=== PATIENT | female | born 1945 | race African-American/Black ===

== ENCOUNTER 2017-06-08 17:07 | Outpatient (CLI) | payer OTHER | END 2017-06-08 17:09 | disposition short-term general hospital (02) | LOC: AMB 17:07 | DX: R07.89 Other chest pain (principal); M54.89 Other dorsalgia; M79.602 Pain in left arm | CPT/HCPCS: A0425; A0427 ==

== ENCOUNTER 2017-06-08 17:14 | Emergency (ER) | payer OTHER ==
[~2017-06-08] VITALS: Ht 160 cm; Wt 65.8 kg
== END 2017-06-08 19:22 | disposition home or self-care (01) ==
LOC: ED 17:14
DX: J44.0 Chronic obstructive pulmonary disease with (acute) lower respiratory infection (principal); J20.9 Acute bronchitis, unspecified
CPT/HCPCS: 93005; 99283

== ENCOUNTER 2018-02-02 18:12 | Emergency (ER) | payer OTHER ==
[~2018-02-02] VITALS: Ht 160 cm; Wt 65.8 kg
[2018-02-02 18:10] VITALS: BP 137/66; TEMP 97.3
[2018-02-02 18:59] LABS: PLATELET COUNT 287 K/uL (152-353)
== END 2018-02-02 18:53 | disposition home or self-care (01) ==
LOC: ED 18:12
PROVIDERS: Specialist
DX: R06.02 Shortness of breath (principal)
CPT/HCPCS: 80053; 80320; 82150; 82550; 82553; 83605; 83690; 83735; 84100; 84484; 85027; 93005; 99283